=== PATIENT | male | born 1935 | race Two or more races ===

== ENCOUNTER 2022-11-12 22:42 | Emergency (ER) | payer OTHER ==
[~2022-11-12] VITALS: Ht 165.1 cm; Wt 54.5 kg
[2022-11-12] MEDS ORDERED: NITROGLYCERIN 0.4 MG SL TAB SL ONE (23:30)
[2022-11-12] MEDS ORDERED: HEPARIN SODIUM (PORCINE) 5000 UNITS/ML 1ML VIAL IV ONE (23:30)
[2022-11-12] MEDS ORDERED: ASPirin 325 MG TAB PO ONE (23:30)
[2022-11-13 00:05] LABS: Basophils # (auto) 0 10 ^3/uL (0-0.2); Basophils % (auto) 0.5 % (0.0-2.0); Eosinophils # (auto) 0 10 ^3/uL (0-0.8); Hematocrit 41.4 % (41.0-53.0); Hemoglobin 13.5 g/dL (13.5-17.5); Lymphocytes # (auto) 0.2 10 ^3/uL (0.4-5.4); Lymphocytes % (auto) 2.3 % (10.0-50.0); Mean Corpuscular Hemoglobin 27.6 pg (28.0-32.0); Mean Corpuscular Hgb Conc. 32.6 g/dL (32.0-36.0); Mean Corpuscular Volume 84.6 fL (80.0-100.0); Monocytes # (auto) 0.5 10 ^3/uL (0-1.3); Monocytes % (auto) 6.3 % (0.0-12.0); Neutrophils # (auto) 7.9 10 ^3/uL (1.6-8.6); Neutrophils % (auto) 90.9 % (37.0-80.0); Red Blood Cells 4.89 10^6/uL (4.5-5.90); Red Cell Distribution Width 13.6 % (11.8-14.3); White Blood Cell 8.7 10^3/uL (4.4-10.8)
[2022-11-13 00:13] LABS: INR 1.13 (0.9-1.15); Partial Thromboplastin Time 30.3 sec (24.6-33.4)
[2022-11-13 00:18] LABS: Albumin 3.4 g/dL (3.4-5.0); BUN/Creatinine Ratio 17.4; Calcium 8.8 mg/dL (8.5-10.1); Potassium 3.5 mmol/L (3.5-5.1)
[2022-11-13 00:21] LABS: Bilirubin, Total 1.1 mg/dL (0.2-1.0); Total Protein 6.8 g/dL (6.4-8.2)
[2022-11-13] MEDS ORDERED: DexAMETHasone SOD PHOS 10MG/1ML VIAL INJ IV ONE (02:30)
[2022-11-13] MEDS: AMPICILLIN & SULBACTAM SODIUM 3 GM in SODIUM CHL 0.9% 100 ML IV SCH ×2 (02:30→09:00)
[2022-11-13] MEDS ORDERED: cefTRIAXone 1GM/50ML D5W 50 ML IV ONE (04:30)
[2022-11-13] MEDS ORDERED: DOXYCYCLINE 100MG/250ML 250 ML IV ONE (04:30)
[2022-11-13] MEDS ORDERED: levoFLOXacin 500 MG TAB PO ONE (08:45)
[2022-11-13] MEDS ORDERED: DexAMETHasone 4 MG TAB PO ONE (08:45)
[2022-11-13 10:00] VITALS: BP 103/54
== END 2022-11-13 11:27 | disposition home or self-care (01) ==
LOC: EDBD 22:42 → ER 22:46
DX: U07.1 COVID-19 (principal); J12.82 Pneumonia due to coronavirus disease 2019; I21.4 Non-ST elevation (NSTEMI) myocardial infarction
CPT/HCPCS: 36415; 71045; 80053; 83605; 84484; 85025; 85610; 85730; 86850; 86900; 86901; 87426; 93005; 96365; 96366; 96368; 96375; 99285; J0696; J1100; J1644; J3490; J8540